=== PATIENT | female | born 1955 | race Caucasian/White ===

== ENCOUNTER → 2022-05-06 14:19 | Outpatient (BNVA) | payer OTHER, SELFPAY | PROVIDERS: PCP Internal Medicine Cardiovascular Disease; Visit Provider Emergency Medicine | DX: S62.397A Other fracture of fifth metacarpal bone, left hand, initial encounter for closed fracture (principal); X58.XXXA Exposure to other specified factors, initial encounter; M79.642 Pain in left hand | CPT/HCPCS: 73130 ==

== ENCOUNTER 2022-05-08 10:43 | Outpatient (CLI) | payer OTHER, SELFPAY | END 2022-05-08 10:44 | disposition home or self-care (01) | LOC: SPT 10:44 | PROVIDERS: PCP Internal Medicine Cardiovascular Disease; Visit Provider Orthopaedic Surgery | DX: Z46.89 Encounter for fitting and adjustment of other specified devices (principal); S62.307S Unspecified fracture of fifth metacarpal bone, left hand, sequela; X58.XXXS Exposure to other specified factors, sequela | CPT/HCPCS: 97760; L3984 ==

== ENCOUNTER 2022-05-11 12:33 | Day surgery (SDC) | payer OTHER, SELFPAY ==
[2022-05-08 13:37] VITALS: BMI 27.9
[2022-05-11] VITALS (10 sets, daily range): BP systolic 100–118; BP diastolic 54–83; PULSE 61–78; RESP 12–18; TEMP 36.3–36.7; O2SAT 93–99
--- NOTE | 2022-05-11 | SCC_ITS ---
Preop Diagnosis fifth metacarpal fx 39.8 seconds of fluoroscopic guidance, for a cumulative dose of 0.49 mGy, was provided to Dr. Rebollar by the radiology department. C-arm images of the left hand were saved for the patient's permanent record. [facility]
--- NOTE | 2022-05-11 | XR_ITS ---
WS: [id number] XR hand LT 2V [id number] REASON FOR EXAM: 5th metacarpal bone left hand. FINDINGS: Multiple oblique screw fixation of comminuted fracture of the distal fifth metacarpal. Fracture fragments and surgical appliances are in proper position and alignment. XR/XR hand LT 2V [id number] IMPRESSION: Internal fixation of left fifth metacarpal fracture without abnormality.
--- NOTE | 2022-05-11 10:35 | P.ANESASSM_ITS ---
Pre-Anesthetic Assessment Height/Weight: Height 1.55 m Weight 67.132 kg Preop Diagnosis: fifth metacarpal fx Operation Date: 05/11/22 13:30 Proposed Procedures p ORIF Finger [id number]/Fracture of fifth metacarpal bone of left hand? S62.307A(Left) - Alvino Rebollar MD Familial anesthetic complications: None Was Beta Kendy taken within 24 hours: N/A Was Clonidine taken within 24 hours: N/A Social No alcohol and No tobacco Exam alert, oriented x 3, clear to auscultation bilaterally and regular rate & rhythm Airway Submandibular: within normal limits Cervical ROM: within normal limits Mallampati: Class II Dentition: full History/ROS No significant complaints Pulmonary None reported CV/HEM None reported None reported Hepatic None reported GI None reported Metabolic None reported Musc/skel Right fifth metacarpal fx, right ring phalanx fx Neuropsych None reported Anesthetic Plan ASA status: 1 Anesthesia: Anesthesia Evaluation and General Other: We discussed risk and benefits of general anesthesia including PONV, sore throat (sometimes severe), corneal abrasion, positioning and peripheral nerve injuries, life threatening allergic reaction, post operative ICU admission requiring prolonged intubation, stroke, heart attack, , and rare incidences of recall. Patient consents to proceed with general anesthesia. Risk of > 500 ml blood loss (7ml/kg in children): No Medications/Allergies Home Medications Medication Instructions Recorded Confirmed Last Taken Type fast form Ulnar lalater #1 ea 05/08/22 05/08/22 Unknown Rx Allergies Allergy/AdvReac Type Severity Reaction Status Date / Time No Known Allergies Allergy Verified 05/08/22 13:36 [facility] Anesthesia Social History Smoking and tobacco status: former smoker Female Reproductive History Spontaneous abortions: No Data Anesthesia Cardiac Studies: No Data to Display
--- NOTE | 2022-05-11 12:59 | W.PM.OPSUD ---
Surgery/Procedure H&P Update DATE OF PROCEDURE: May 11, 2022 DATE H&P PERFORMED: 05/08/22 H&P UPDATE INFORMATION: I have reviewed H&P completed within last 30 days PLANNED PROCEDURE: Operation Date: 05/11/22 13:30 Proposed Procedures p ORIF Finger 92686/Fracture of fifth metacarpal bone of left hand? S62.307A(Left) - Alvino Rebollar MD
[2022-05-11] MEDS: diphenhydrAMINE 50 mg/mL SDV 1mL 12.5 MG IVP (13:20)
[2022-05-11] MEDS: sodium chloride 0.9% 1,000 ML 30 ML IV (13:23)
[2022-05-11] MEDS: ceFAZolin 2,000 MG in sodium chloride 0.9% (plus) 50 ML 100 MG IV (13:35)
--- NOTE | 2022-05-11 14:41 | P.OP_ITS ---
Operative Report Date of procedure: May 11, 2022 Pre-op diagnosis: Preop Diagnosis fifth metacarpal fx Post-op diagnosis: same Implants: Ramon screws 14 and 12mmx 2.3mm, 10mmx 1.7mm Pathology: none sent Surgeon: Alvino Rebollar Anesthesia: General Estimated blood loss (mL): 2 Tourniquet time (min): 43 Condition: stable Disposition: PACU Brief History: The patient is a 66-year-old female who sustained intra-articular fracture of her left fifth metacarpal head 2 weeks ago. Surgical stabilization was chosen to obtain a congruent articular surface Procedure: The patient was taken to the operating room and given a general anesthesia. She was given 2 g of Ancef. A tourniquet was inflated to 200 mmHg. Initially a dorsal lateral incision was made approximately 3 cm long beginning over the fifth metacarpal head extending proximally and dorsally. Dissection was carried under loupe magnification to the skin. The extensor tendon was identified and retracted radially. Scalpel was used to elevate periosteum dorsally revealing the fracture which really had very little healing. A [place] was introduced along the fracture site. The fracture was brought out to length with longitudinal traction and held reduced with a small Hohmann retractor. I initially a 2.3 mm x 12 mm screw was passed across the fracture maintaining reduction. An additional 14 mm screw the same diameter was placed just proximally. A small 1.7 millimeter screw was placed through the lateral apex of the fracture radially into the metacarpal head for additional fixation. Injection imaging showed satisfactory alignment of the fracture and adequate screw lengths. The wound was irrigated with saline. Skin edges were infiltrated with quarter percent Marcaine. Xeroflo gauze, 4 x 4's, Coban were applied. The patient was placed in a removable splint
--- NOTE | 2022-05-11 14:52 | SUR.PHASEI ---
14:40 RECEIVED PT FROM OR STAFF.RESPONDS TO VOICE. VENTILATING WELL. NSR ON MONITOR. DENIES PAIN.
--- NOTE | 2022-05-11 15:02 | SUR.PHASEI ---
15:00 LEFT HAND ELEVATED AND ICE PACK APPLIED.
--- NOTE | 2022-05-11 15:32 | ANE.PACU2 ---
Inpatient post-anesthesia follow up: Airway intact: Yes Vital signs: Temperature 97.8 F Pulse Rate 68 Respiratory Rate 16 Blood Pressure 101/54 Pulse Oximetry 96 Oxygen Delivery Me thod Room Air Oxygen Flow Rate Fraction of Inspir ed Oxygen Hydration adequate: Yes Nausea and vomiting: No Pain level: 3 Mental status: Baseline
[2022-05-11] MEDS: HYDROcodone-acetaminophen 5-325 mg Tablet 1 TAB PO (15:58)
== END 2022-05-11 16:08 | disposition home or self-care (01) ==
PROVIDERS: Visit Provider Orthopaedic Surgery
PROC: (CPT 26615; principal; 2022-05-11 13:10)
DX: S62.307A Unspecified fracture of fifth metacarpal bone, left hand, initial encounter for closed fracture (principal); W19.XXXA Unspecified fall, initial encounter; Z87.891 Personal history of nicotine dependence
CPT/HCPCS: 26615; 73120; 76000; C1713; J1100; J1200; J2250; J2405; J2704; J3010; J3490; J7030

== ENCOUNTER → 2022-06-15 13:25 | Outpatient (BNVA) | payer OTHER, SELFPAY | PROVIDERS: Visit Provider Emergency Medicine | DX: S69.92XA Unspecified injury of left wrist, hand and finger(s), initial encounter (principal); W22.8XXA Striking against or struck by other objects, initial encounter; Y93.E5 Activity, floor mopping and cleaning; S62.605D Fracture of unspecified phalanx of left ring finger, subsequent encounter for fracture with routine healing; X58.XXXD Exposure to other specified factors, subsequent encounter; Z98.890 Other specified postprocedural states; R60.0 Localized edema | CPT/HCPCS: 73130 ==

== ENCOUNTER → 2022-06-23 13:12 | Outpatient (BNVA) | payer OTHER, SELFPAY | PROVIDERS: Visit Provider Nurse Practitioner Family | DX: S62.307D Unspecified fracture of fifth metacarpal bone, left hand, subsequent encounter for fracture with routine healing (principal); Z98.890 Other specified postprocedural states; X58.XXXD Exposure to other specified factors, subsequent encounter | CPT/HCPCS: 73130 ==